=== PATIENT | female | born 2000 | race Caucasian/White ===

== ENCOUNTER 2020-01-08 18:12 | Emergency (ER) | payer BC, SELFPAY ==
[2020-01-08 18:12] VITALS: BP 121/69; PULSE 87; RESP 21; TEMP 36.9; O2SAT 99; BMI 38.7
--- NOTE | 2020-01-08 18:40 | HMH.EDUTC ---
[facility] [place] Disposition Clinical Impression: Sore throat Sinusitis Qualifiers: Sinusitis location: unspecified location Chronicity: unspecified Qualified Code(s): J32.9 - Chronic sinusitis, unspecified Disposition: Home, Self-Care Condition on Discharge: Good Instructions: Sinusitis, Sinus Headache, DI for Sinusitis Additional Instructions: Start antibiotic. Sinus infections may take 2-3 days to notice much improvement so be sure to use conservative measures as discussed for symptoms Flonase 2 spray in each nostril daily to help with nasal congestion, sinus an ear pressure/inflammation Lots of Fluids Sleep elevated Humidifer/vaporizer Augmentin can cause GI effects. Probiotics may help to prevent these symptoms Follow up with family doctor if no improvement or any worsening of symptoms Return if needed *Monitor Temp, Over the counter Motrin or Tylenol as directed/as needed Tylenol every 4 hours and Motrin every 6 hours (as long as your family doctor has told you that you can take it) for fever or pain. and straight to ER if unable to lower temp less than 101.0 after medication given *Warm salt water gargles may help to soothe the throat *Throat Lozenges *Warm fluids like tea with honey may help to soothe the throat *Sleep elevated *Humidifier/Vaporizer Your throat swab was sent for culture. Those results are typically sent to your primary care. Be sure to follow up in 2-3 days with your family doctor/primary care physician if no improvement so they can review those result and treat if necessary. If you don?t have a primary care doctor, I recommend you get one but in the mean time, you will have to return to a walk in clinic Follow up IMMEDIATELY for new or worsening symptoms or no Noticeable improvement over the next 48-72 hours. 911 for difficulty breathing or swallowing Prescriptions: Amoxicillin/Potassium Clav [Augmentin 875-125 Tablet] 1 tab PO Q12H 7 Days #14 tab Transmission Status: Pending to [facility] Fluticasone Propionate [Flonase 50mcg nasal spray 16gm] 2 spr NS DAILY #1 bottle Transmission Status: Pending to [facility] Referrals: Bi Morocho MD [Primary Care Provider] - As needed Time of Disposition: 18:48 Medical Decision Making - Fernandez Inquiry Pt receiving controlled substance: No Fernandez was queried for this patient: No Vital Signs: 01/08/20 18:12 Temperature 98.4 F Temperature Source Oral Pulse Rate [Radial] 87 Respiratory Rate 21 Blood Pressure [Right Arm] 121/69 Blood Pressure Mean [Right Arm] 86 Blood Pressure Source [Right Arm] Automatic Cuff Blood Pressure Position [Right Arm] Sitting 02 Sat by Pulse Oximetry 99 Oxygen Delivery Method Room Air - Lab Data Lab results reviewed: Yes: I reviewed the patient's lab results. [facility] [place] HPI - General Stated complaint: Sore throat Time Seen by Provider: 01/08/20 18:40 Mode of Arrival: Ambulatory Source of Information: Patient Limitations: No Limitations Description of Symptoms (Recalled from Triage Doc. by RN): sore throat,blisters since last night HEENT Symptoms (Recalled from RN notes): Yes Resp Symptoms (Recalled from RN notes): No Skin Symptoms (Recalled from RN notes): No MS Symptoms (Recalled from RN notes): No Functional Status (Recalled from RN notes): wnl - History of Present Illness Provider Complaint: Patient states that she has been having sinus pain and pressure on and off for a couple of weeks and last night she started having sore throat State that she looked at her throat and thought she saw some blisters back there and some yellowish colored drainage State that today her throat was hurting worse and feeling pressure in her sinuses so she came in to get checked for strep throat - Related Data Home Medications Medication Instructions Recorded Confirmed Dicyclomine HCl [Bentyl 10mg 10 mg PO Q8H 01/15/18 01/15/18 capsule] Previous Rx's Medication Instructions Recorded Ondansetron [Z
[2020-01-08 18:55] VITALS: BP 121/69; PULSE 87; RESP 21; TEMP 36.9; O2SAT 99
[2020-01-08 18:57] LABS: UTC Strep Screen (Rapid) Negative (Negative)
== END 2020-01-08 18:57 | disposition home or self-care (01) ==
PROVIDERS: Emergency Provider Nurse Practitioner; PCP Family Medicine
DX: J32.9 Chronic sinusitis, unspecified (principal); F17.210 Nicotine dependence, cigarettes, uncomplicated
CPT/HCPCS: 87880; 99201

== ENCOUNTER 2020-05-17 11:08 | Emergency (ER) | payer BC, SELFPAY ==
[2020-05-17 11:57] VITALS: BP 131/85; PULSE 84; RESP 18; TEMP 36.8; O2SAT 99; BMI 36.7
--- NOTE | 2020-05-17 12:16 | HMH.EDUTC ---
[facility] [place] Disposition Clinical Impression: Encounter for laboratory testing for COVID-19 virus Disposition: Home, Self-Care Condition on Discharge: Good Instructions: Preventing the Spread of Coronavirus Discharge Instructions Additional Instructions: *Monitor Temp, Over the counter Motrin or Tylenol as directed/as needed Tylenol every 4 hours and Motrin every 6 hours (as long as your family doctor has told you that you can take it) for fever or pain. and straight to ER if unable to lower temp less than 101.0 after medication given *Warm salt water gargles may help to soothe the throat *Throat Lozenges *Warm fluids like tea with honey may help to soothe the throat *Sleep elevated *Humidifier/Vaporizer *Flonase 2 sprays in each nostril daily but be aware that it may take 2-3 days before you notice improvement *Bromfed may cause drowsiness. Know how it effects you (your child) before driving, caring for small child, or sending your child to school. Not other antihistamines/allergy medications while taking bromfed Follow up IMMEDIATELY for new or worsening symptoms or no Noticeable improvement over the next 48-72 hours. 911 for difficulty breathing or swallowing You was tested for today for COVID19 your test result should be back in the next 24-48 hours, you may call to the [facility] later today or tomorrow to see if your test results are back and the result [phone] [facility] hours are 9am-9pm You was given a handout with instructions for Self Quarantine and Self isolation for while you wait on test results and what to do if they are positive If you are positive the Health Dept will be contacting you also Prescriptions: Brompheniramine/Pseudoephed/Dm [Bromfed Dm Cough Syrup] 5 - 10 ml PO Q46H PRN #150 ml PRN Reason: Cough Transmission Status: Pending to [facility] #[id number] Referrals: Bi Morocho MD [Primary Care Provider] - As needed Forms: Work/School Release Time of Disposition: 12:21 Medical Decision Making - Fernandez Inquiry Pt receiving controlled substance: No Fernandez was queried for this patient: No Vital Signs: 05/17/20 11:57 Temperature 98.2 F Temperature Source Oral Pulse Rate [Radial] 84 Respiratory Rate 18 Blood Pressure [Right Arm] 131/85 Blood Pressure Mean [Right Arm] 100 Blood Pressure Source [Right Arm] Automatic Cuff Blood Pressure Position [Right Arm] Sitting 02 Sat by Pulse Oximetry 99 Oxygen Delivery Method Room Air Orders (Tests/Meds): ORDERS Category Date Time Status Covid-19 Nasal PCR Sendout [facility] 05/17/20 11:50 Ordered [facility] [place] HPI - General Stated complaint: Covid test Time Seen by Provider: 05/17/20 12:16 Mode of Arrival: Ambulatory Source of Information: Patient Limitations: No Limitations Description of Symptoms (Recalled from Triage Doc. by RN): wants covid test for work HEENT Symptoms (Recalled from RN notes): No Resp Symptoms (Recalled from RN notes): No Skin Symptoms (Recalled from RN notes): No MS Symptoms (Recalled from RN notes): No Functional Status (Recalled from RN notes): wnl - History of Present Illness Provider Complaint: Patient states that she has has a little cold having clear drainage from her nose and cough States that she gets this when the weather changes every year but work would not let her return until she got tested for COVID - Related Data Home Medications Medication Instructions Recorded Confirmed Dicyclomine HCl [Bentyl 10mg 10 mg PO Q8H 01/15/18 01/15/18 capsule] Previous Rx's Medication Instructions Recorded Ondansetron [Zofran 4mg ODT] 4 mg PO Q8HP PRN #6 tab.rapdis 01/14/18 Amoxicillin/Potassium Clav 1 tab PO Q12H 7 Days #14 tab 01/08/20 [Augmentin 875-125 Tablet] Fluconazole [Diflucan 150mg tab] 150 mg PO ONCE #1 tab 01/08/20 Fluticasone Propionate [Flonase 2 spr NS DAILY #1 bottle 01/08/20 50mcg nasal spray 16gm] Brompheniramine/Pseudoephed/Dm 5 - 10 ml PO Q46H PRN #150 ml 05/17/20 [Bromfe
[2020-05-17 12:38] VITALS: BP 131/85; PULSE 84; RESP 18; TEMP 36.8; O2SAT 99
[2020-05-18 10:41] LABS: Covid-19 Nasal PCR Sendout Lex Not Detected
== END 2020-05-17 12:39 | disposition home or self-care (01) ==
PROVIDERS: Emergency Provider Nurse Practitioner; PCP Family Medicine
DX: Z20.828 Contact with and (suspected) exposure to other viral communicable diseases (principal)
CPT/HCPCS: 99201; U0004

== ENCOUNTER 2021-04-21 13:10 | Emergency (ER) | payer BC, SELFPAY ==
[2021-04-21 14:06] VITALS: BP 132/92; PULSE 104; RESP 18; TEMP 37.3; O2SAT 98; BMI 36.2
--- NOTE | 2021-04-21 14:09 | HMH.EDUTC ---
[facility] [place] Clinical Impression: Low back pain Qualifiers: Chronicity: acute Back pain laterality: bilateral Sciatica presence: without sciatica Qualified Code(s): M54.50 - Low back pain, unspecified Back strain Qualifiers: Encounter type: initial encounter Qualified Code(s): S39.012A - Strain of muscle, fascia and tendon of lower back, initial encounter Disposition: Home, Self-Care Condition on Discharge: Good Instructions: Low Back Pain, DI for Low Back Pain Additional Instructions: Go home and rest. It would be best if you rested tomorrow too. No heavy lifting. No twisting. Take the oral medications as directed. Take the Ibuprofen regularly for the next 3 to 4 days to try to reduce the inflammation in your back. The muscle relaxer (cyclobenzaprine--Flexeril) will make you drowsy, so don't drive or operate heavy machinery after taking it. Follow up with your regular doctor. GO TO THE ER FOR ANY WORSENING SYMPTOMS OR CONCERN, ESPECIALLY BOWEL OR BLADDER ISSUES, SADDLE AREA NUMBNESS, FEVER, ETC Prescriptions: Ibuprofen [Ibuprofen 800mg Tablet] 800 mg PO Q8HP PRN #30 tab PRN Reason: Moderate Pain Transmission Status: Received by [facility] Cyclobenzaprine HCl [Cyclobenzaprine 10mg Tab] 10 mg PO BIDP PRN #20 tab PRN Reason: Muscle Spasm Transmission Status: Received by [facility] Referrals: Bi Morocho MD [Primary Care Provider] - Forms: Work/School Release Time of Disposition: 14:33 Medical Decision Making - Medical Records Medical records reviewed: No: I reviewed the patient's medical records. - Fernandez Inquiry Pt receiving controlled substance: No Vital Signs: 04/21/21 14:06 04/21/21 14:49 Temperature 99.1 F 99.1 F Temperature Source Oral Oral Pulse Rate 104 H Pulse Rate [Right Brachial] 104 H Respiratory Rate 18 18 Blood Pressure 132/92 H Blood Pressure [Right Arm] 132/92 H Blood Pressure Mean [Right Arm] 105 Blood Pressure Source [Right Arm] Automatic Cuff Blood Pressure Position [Right Arm] Sitting 02 Sat by Pulse Oximetry 98 Oxygen Delivery Method Room Air [facility] [place] - General Stated complaint: possible pulled muscle Time Seen by Provider: 04/21/21 14:09 - History of Present Illness Provider Complaint: She c/o low back pain for the past 3 days. She originally felt something pull in her back when she was lifting something heavy. - Related Data Previous Rx's Medication Instructions Recorded Cyclobenzaprine HCl 10 mg PO BIDP PRN #20 tab 04/21/21 [Cyclobenzaprine 10mg Tab] Ibuprofen [Ibuprofen 800mg 800 mg PO Q8HP PRN #30 tab 04/21/21 Tablet] Allergies Allergy/AdvReac Type Severity Reaction Status Date / Time No Known Allergies Allergy Verified 01/15/18 23:33 [facility] History - Hepatitis A Screen Attestation statement:: This patient has been screened for Hepatitis A risk factors. 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
[2021-04-21 14:49] VITALS: BP 132/92; PULSE 104; RESP 18; TEMP 37.3
== END 2021-04-21 14:49 | disposition home or self-care (01) ==
PROVIDERS: Emergency Provider Nurse Practitioner Family; PCP Family Medicine
DX: S39.012A Strain of muscle, fascia and tendon of lower back, initial encounter (principal); X50.0XXA Overexertion from strenuous movement or load, initial encounter
CPT/HCPCS: 99202; G0463

== ENCOUNTER → 2021-07-02 09:47 | Outpatient (CLI) | payer BC, SELFPAY | PROVIDERS: PCP Family Medicine; Visit Provider Nurse Practitioner | DX: Z20.822 Contact with and (suspected) exposure to COVID-19 (principal) | CPT/HCPCS: C9803; U0003; U0005 ==

== ENCOUNTER 2021-09-28 19:16 | Emergency (ER) | payer BC, SELFPAY ==
[2021-09-28 19:19] VITALS: BP 155/103; PULSE 122; RESP 20; TEMP 36.8; O2SAT 97; BMI 32.9
--- NOTE | 2021-09-28 19:28 | XR_ITS ---
PROCEDURE INFORMATION: Exam: XR Chest Exam date and time: 09/28/2021 8:03 PM Age: 21 years old Clinical indication: Shortness of breath; Additional info: Chest pain/soa TECHNIQUE: Imaging protocol: XR of the chest. Views: 2 views. COMPARISON: [id number] CT abdomen pelvis wo/w con 01/14/2018 3:56 PM FINDINGS: Lungs: No acute pulmonary findings. No pulmonary consolidation. Lung volumes within normal limits. Pleural spaces: Unremarkable. No significant pleural effusion. No pneumothorax. Heart/Mediastinum: The cardiac silhouette is normal. Bones/joints: No acute fracture or listhesis, as visualized. IMPRESSION: No acute findings.
--- NOTE | 2021-09-28 19:28 | ECG_ITS ---
APPROVED REPORT Exam: Resting ECG HR:102 bpm ECG Measurements Heart Rate 102 AXES WY 161 P 70 QRSd 77 QRS 72 QT 324 T 34 QTc 383 Conclusion SINUS TACHYCARDIA ABNORMAL RHYTHM ECG UNCONFIRMED REPORT Electronically signed by : Bi Bowser MD 09/29/2021 08:37:51
--- NOTE | 2021-09-28 19:36 | HMH.EDANX ---
ED Disposition <Isreal Saenz - Last Filed: 09/28/21 19:36> Condition on Discharge: Good - Critical Care Critical Care Time: No <Robert Farr Ankita - Last Filed: 09/28/21 21:10> Clinical Impression: Acute anxiety Disposition: Home, Self-Care Instructions: Anxiety and Panic Attacks (Alternative Therapy) Additional Instructions: fluids and call pcp for follow up Referrals: Ashia Melton APRN [Primary Care Provider] - Attestation: On 09/28/21, the high probability of a clinically significant, sudden or life threatening deterioration of the following system(s) required my full and direct attention, intervention and personal management. The time I documented below is in addition to time spent performing reported procedures but includes the following listed in this critical care notation. Medical Decision Making - Medical Records Medical records reviewed: Yes: I reviewed the patient's medical records. - Fernandez Inquiry Pt receiving controlled substance: No Fernandez was queried for this patient: No - Lab Data Lab results reviewed: Yes: I reviewed the patient's lab results. <Isreal Saenz - Last Filed: 09/28/21 19:36> - Lab Data Result diagrams: 09/28/21 19:50 09/28/21 19:30 - Radiology Data #1 Image(s): Chest Image Reviewed: Yes I have reviewed radiologist's interpretation Preliminary Findings: Normal/NAD - ECG Data Tracing #1 Arrhythmias present: sinus tach Ischemic changes: non-specific ST-T wave changes - NICOLE Score for Non-Stemi Age of Patient: <30 years old Heart Rate: 110-149 bpm Systolic Blood Pressure: 140-159 mmHg Serum Creatinine: 0.40-0.79 mg/dl CHF Killip Class: I-No CHF Other Risk Factors: None Non-Stemi Risk Score: 52 <ChikaRobert Luciano - Last Filed: 09/28/21 21:10> Vital Signs: 09/28/21 19:19 09/28/21 20:15 Temperature 98.2 F Temperature Source Oral Pulse Rate 85 Pulse Rate [Left Radial] 122 H Respiratory Rate 20 Blood Pressure 157/90 H Blood Pressure [Right Arm] 155/103 H Blood Pressure Mean [Right Arm] 120 Blood Pressure Source [Right Arm] Automatic Cuff Blood Pressure Position [Right Arm] Sitting 02 Sat by Pulse Oximetry 97 98 Oxygen Delivery Method Room Air - Lab Data Lab Results 09/28/21 19:30: Sodium 136, Potassium 3.5, Chloride 106, Carbon Dioxide 18 L, Anion Gap 15.5 H, BUN 14, Creatinine 0.60, Estimated Creat Clear 188, Estimated GFR 124, Est GFR ( Amer) 150, Glucose 92, Calcium 8.7, Troponin I < 0.01 09/28/21 19:30: Serum HCG, Qual Negative 09/28/21 19:50: WBC 8.5, RBC 4.25, Hgb 13.3, Hct 41.5, MCV 97.7, MCH 31.2, MCHC 32.0, RDW 16.0, Plt Count 415, MPV 8.0, Neut % (Auto) 71.5, Lymph % (Auto) 20.3, Price % (Auto) 5.9, Eos % (Auto) 1.7, Baso % (Auto) 0.6, Neut # (Auto) 6.1, Lymph # (Auto) 1.7, Price # (Auto) 0.5, Eos # (Auto) 0.1, Baso # (Auto) 0.1 Orders (Tests/Meds): ED MEDICATIONS Generic Name Dose Route Start Last Admin Trade Name Freq PRN Reason Stop Dose Admin Sodium Chloride 10 ml 09/28/21 19:28 Sodium Chloride 0.9% 10ml Flush Syringe IV 10/28/21 19:27 NEEDED PRN Maintain IV Site ORDERS Category Date Time Status Troponin I Q3H Lab 09/28/21 22:30 Ordered Troponin I Q3H Lab 09/29/21 01:30 Ordered Medical Decision Narrative: Patient is a 21-year-old female with past medical history of anxiety presenting to the ED with palpitations. Patient is awake, alert, not in acute distress. Patient is medically stable, afebrile. Patient's physical exam is unremarkable. Patient has mild tachycardia here. Differential includes but is not limited to panic attacks, generalized anxiety, situational anxiety, low concern for a cardiac source of chest pain. Given this a CBC, CMP, troponins, chest x-ray performed. Patient handed off to incoming physician pending lab work (Isreal Saenz) stable exam and labs - will d/c feels better (Robert Farr) Anxiety HPI - General Mode of Arrival: Ambula
[2021-09-28 19:56] LABS: Chloride 106 mmol/L (98-107); Potassium 3.5 mmoL/L (3.5-5.1); Sodium 136 mmol/L (136-145)
[2021-09-28 19:57] LABS: Basophils # 0.1 K/mm3 (0-0.2); Basophils % 0.6 % (0.1-2.0); Eosinophils # 0.1 K/mm3 (0.0-0.4); Eosinophils % 1.7 % (0.1-12.0); Hematocrit 41.5 % (37.0-47.0); Hemoglobin 13.3 g/dL (12.2-16.2); Lymphocytes # 1.7 K/mm3 (0.7-4.5); Lymphocytes % 20.3 % (10-50); Mean Corpuscular Hemoglobin 31.2 pg (27.0-31.2); Mean Corpuscular Volume 97.7 fl (81-99); Monocytes # 0.5 K/mm3 (0.1-1.0); Monocytes % 5.9 % (1.7-9.3); Neutrophils # 6.1 K/mm3 (1.8-7.8); Neutrophils % 71.5 % (37.0-80.0); Platelet Count 415 K/mm3 (142-424); Red Blood Count 4.25 M/mm3 (4.20-5.40); White Blood Count 8.5 K/mm3 (4.8-10.8)
[2021-09-28 19:59] LABS: Anion Gap 15.5 mEq/L (5-15); Blood Urea Nitrogen 14 mg/dl (7-17); Calcium 8.7 mg/dl (8.4-10.2); Carbon Dioxide 18 mmol/L (22.0-30.0); Creatinine Clearance Estimated 188 mL/min (50-200); Estimated Glomerular Filt Rate 124 ml/min (>60); GFR (African American) 150 ML/MIN (>60); Glucose 92 mg/dl (74-100)
[2021-09-28 20:00] LABS: HCG Qualitative, Serum Negative (Negative)
[2021-09-28 20:12] LABS: Troponin I < 0.01 ng/ml (0.00-0.034)
[2021-09-28 20:15] VITALS: BP 157/90; PULSE 85; O2SAT 98
[2021-09-28 21:45] VITALS: BP 135/78; PULSE 89; RESP 19; TEMP 36.9; O2SAT 99
== END 2021-09-28 21:50 | disposition home or self-care (01) ==
PROVIDERS: Emergency Provider Emergency Medicine; PCP Nurse Practitioner Family
DX: F41.0 Panic disorder [episodic paroxysmal anxiety] (principal); F41.9 Anxiety disorder, unspecified; R00.0 Tachycardia, unspecified; R06.02 Shortness of breath; R00.2 Palpitations; R20.2 Paresthesia of skin; F17.210 Nicotine dependence, cigarettes, uncomplicated
CPT/HCPCS: 71046; 80048; 84484; 84703; 85025; 93005; 99285